=== PATIENT | female | born 1990 | race African-American/Black ===

== ENCOUNTER 2017-09-04 13:45 | Emergency (ER) | payer SELFPAY ==
[~2017-09-04] VITALS: Ht 165.1 cm; Wt 60.0 kg
[2017-09-04] MEDS ORDERED: ONDANSETRON HCL 4MG/2ML VIAL IV STA (22:20)
[2017-09-04] MEDS ORDERED: SODIUM CHLORIDE 0.9% 1,000 ML IV ONE (22:20)
[2017-09-04] MEDS ORDERED: KETOROLAC 30MG/ML VIAL IV STA (22:20)
[2017-09-04 22:56] LABS: CLARITY URINE CLEAR (CLEAR); COLOR URINE YELLOW (YELLOW); KETONES URINE 4+ (NEGATIVE); LEUKOCYTE ESTERASE URINE NEGATIVE (NEGATIVE); NITRITE URINE NEGATIVE (NEGATIVE); OCCULT BLOOD URINE NEGATIVE (NEGATIVE); PROTEIN URINE 1+ (NEGATIVE); SPECIFIC GRAVITY URINE 1.031 (1.005-1.030); UROBILINOGEN URINE 0.2 E.U./dL (0.2-1.0)
[2017-09-04] MEDS ORDERED: METOCLOPRAMIDE HCL 10MG/2ML VIAL IV STA (23:07)
[2017-09-04] MEDS ORDERED: LORAZEPAM 2MG/ML CPJ IV STA (23:19)
[2017-09-05 00:30] LABS: HEMATOCRIT. 39.6 % (36.0-48.0); HEMOGLOBIN. 12.8 g/dL (12.0-16.0); MEAN CORPUSCULAR HEMOGLOBIN 28.1 pg (28.0-32.0); MEAN CORPUSCULAR VOLUME 86.8 fL (81.0-99.0); MEAN PLATELET VOLUME 8.2 fl (7.4-10.4); PLATELET 266 x1000/uL (130-400); RED BLOOD CELL COUNT 4.56 mill/uL (4.2-5.4); RED CELL DISTRIBUTION WIDTH 12.9 % (11.6-14.6)
[2017-09-05 00:35] LABS: INR 1.2; PROTHROMBIN TIME 12.2 sec (9.4-11.6)
[2017-09-05 00:36] LABS: CHLORIDE 107 mEq/L (98-107)
[2017-09-05 00:47] LABS: CARBON DIOXIDE 23 mEq/L (21-32)
[2017-09-05] MEDS ORDERED: METOCLOPRAMIDE HCL 10MG/2ML VIAL IV ONE (01:15)
[2017-09-05] MEDS ORDERED: IOHEXOL-300 100 ML BOTTLE ONE (01:22)
[2017-09-05] MEDS ORDERED: POTASSIUM CHLORIDE 20MEQ TABLET SR PO ONE (04:45)
[2017-09-05 05:12] LABS: PLATELET ESTIMATE NORMAL
[2017-09-05 05:40] VITALS: BP 110/57
== END 2017-09-05 05:40 | disposition home or self-care (01) ==
LOC: EDBD 13:45 → ER 14:29
DX: R10.31 Right lower quadrant pain (principal); R11.2 Nausea with vomiting, unspecified; N83.202 Unspecified ovarian cyst, left side; N83.201 Unspecified ovarian cyst, right side
CPT/HCPCS: 36415; 74177; 80053; 81001; 83690; 85025; 85610; 96361; 96374; 96375; 96376; 99285; J1885; J2060; J2405; J2765; J7030; Q9967; Z7610